=== PATIENT | male | born 1995 | race African-American/Black ===

== ENCOUNTER 2017-04-29 09:26 | Emergency (ER) | payer OTHER ==
[~2017-04-29] VITALS: Ht 177.8 cm; Wt 78.0 kg
[2017-04-29] MEDS ORDERED: ACETAMINOPHEN WITH CODEINE 300/30MG TABLET PO ONE (12:00)
[2017-04-29 13:16] VITALS: BP 125/60
== END 2017-04-29 13:39 | disposition home or self-care (01) ==
LOC: ER 11:56
DX: M54.6 Pain in thoracic spine (principal); F12.10 Cannabis abuse, uncomplicated
CPT/HCPCS: 71045; 99283; Z7610